=== PATIENT | male | born 1945 | race Caucasian/White ===

== ENCOUNTER 2018-01-23 06:02 | Observation (INO) | payer OTHER ==
[~2018-01-23 06:02] MED LIST: BUPI/epINEPH/KETOROLAC IU ONE; NS IV ONE; POVIDONE-IODINE 20 ML in SODIUM CL IRRIG SOLUTION 500 ML IRR ONE; ROPIVACAINE 0.2% 80 MG, EPINEPHrine 0.2 MG, KETOROLAC TROMETHAMINE 30 MG in SYRINGE 0 ML IU ONE; TRANEXAMIC ACID IV ONE
[2018-01-23] MEDS ORDERED: ACETAMINOPHEN 325 MG TAB PO ONE (06:14)
[2018-01-23] MEDS ORDERED: GABAPENTIN 300 MG CAP PO ONE (06:14)
[2018-01-23] MEDS ORDERED: LR 1,000 ML IV ONE (06:14)
[2018-01-23] MEDS ORDERED: ceFAZolin 2 GM/SWFI 2 GM/20 ML SYR IVP ONE (06:14)
[2018-01-23] MEDS ORDERED: DEXAMETHASONE 4 MG/ML VIAL IVP ONE (06:14)
[2018-01-23] MEDS ORDERED: LIDOCAINE 1% 2 ML INJ ID PRN (06:14)
[2018-01-23] MEDS ORDERED: FAMOTIDINE 20 MG TAB PO ONE (06:14)
[2018-01-23] MEDS ORDERED: ONDANSETRON 4 MG/2 ML VIAL IVP ONE (06:14)
--- NOTE | 2018-01-23 06:45 | PDANEPAE ---
ANE History of Present Illness 72 yo for tka ANE Past Medical History - Cardiovascular History Hx Hypertension: Yes Hx Arrhythmias: No Hx Chest Pain: No Hx Coronary Artery / Peripheral Vascular Disease: No Hx CHF / Valvular Disease: No Hx Palpitations: No Cardiovascular History Comment: ELEVATED CHOLESTEROL - Pulmonary History Hx COPD: No Hx Asthma/Reactive Airway Disease: No Hx Recent Upper Respiratory Infection: No Hx Oxygen in Use at Home: No Hx Sleep Apnea: Yes Sleep Apnea Screening Result - Last Documented: Positive Pulmonary History Comment: LOVE USED PREVIOUSLY NOT IN USE FOR 5 YRS. - Neurologic History Hx Cerebrovascular Accident: No Hx Seizures: Yes Hx Dementia: No Neurologic History Comment: VIRAL CEPHALITIS. RESIDUAL MEMORY PERCEPTION. SHORT TERM MEMORY ISSUES - Endocrine History Hx Diabetes: No - Renal History Hx Renal Disorders: Yes Renal History Comment: PASSED PREV STONE - Liver History Hx Hepatic Disorders: No - Neurological & Psychiatric Hx Hx Neurological and Psychiatric Disorders: No - Cancer History Hx Cancer: No - Congenital Disorder History Hx Congenital Disorders: No - GI History Hx Gastrointestinal Disorders: Yes Gastrointestinal History Comment: SKIN - Other Health History Other Health History: RT LEG DVT 2003. PE 2003 - Chronic Pain History Chronic Pain: Yes (RT KNEE) - Surgical History Prior Surgeries: FOREHEAD MOH'S PROCEDURE 01/09/2018. RT KNEE SCOPE. RT CARPAL TUNNEL RELEASE ANE Review of Systems Review of Systems: - Exercise capacity METS (RN): 4 METS ANE Patient History - Allergies Allergies/Adverse Reactions: Sulfa (Sulfonamide Antibiotics) Allergy (Intermediate, Verified 12/02/11 12:56) Hives Penicillins Allergy (Verified 01/23/18 06:39) Hives - Home Medications Home Medications: Acetaminophen [Tylenol ES 500 mg (*)] 1,000 mg PO HS 01/18/18 [Last Taken Unknown] Atorvastatin Calcium [Lipitor 10 mg (*)] 10 mg PO DAILY 01/18/18 [Last Taken Unknown] Citalopram [CeleXA] 20 mg PO DAILY 01/18/18 [Last Taken Unknown] Cyanocobalamin [Vitamin B12 (*)] 1,000 mcg PO DAILY 01/18/18 [Last Taken Unknown ] Donepezil HCl [Aricept 5 MG (*)] 10 mg PO DAILY 01/18/18 [Last Taken Unknown] Fexofenadine HCl [Olga Allergy] 60 mg PO DAILY 01/18/18 [Last Taken Unknown] Fluticasone Nasal [Flonase Nasal [place] (RX)] 1 sprays NASAL DAILY PRN 01/18/18 [ Last Taken Unknown] Herbals/Supplements -Info Only 1 ea PO DAILY 01/18/18 [Last Taken Unknown] Lisinopril [Zestril 5 mg (*)] 5 mg PO DAILY 01/18/18 [Last Taken Unknown] lamoTRIgine [LamICTAL 100 MG (*)] 200 mg PO BID 01/18/18 [Last Taken Unknown] - NPO status NPO Status: no food or drink >8 hours - Smoking Hx Smoking Status: Former smoker ANE Labs/Vital Signs - Vital Signs Height: 12 in Weight: 79.379 kg ANE Physical Exam - Airway Neck exam: FROM Mallampati Score: Class 2 Mouth exam: normal dental/mouth exam - Pulmonary Pulmonary: no respiratory distress - Cardiovascular Cardiovascular: regular rate and rhythym - ASA Status ASA Status: II ANE Anesthesia Plan Anesthesia Plan: spinal Regional Anesthesia: continuous NB
[2018-01-23] MEDS ORDERED: PROPOFOL/EMULSION 500 MG/50 ML BOTTLE IV ONE (06:51)
[2018-01-23] MEDS ORDERED: VANCOMYCIN 1 GM VIAL ONE (06:56)
[2018-01-23] MEDS ORDERED: ceFAZolin 1 GM/5 ML SYR ONE (06:57)
--- NOTE | 2018-01-23 07:06 | PDHPUP ---
History & Physical Update H&P update statement: This history and physical update is based on an assessment of the patient which was completed after admission or registration (within 24 hours), but prior to the surgery/procedure. H&P update: H&P reviewed & patient examined
[2018-01-23] MEDS ORDERED: fentaNYL 100 MCG/2 ML INJ ONE (07:31)
[2018-01-23] MEDS ORDERED: HYDROCODONE/APAP 5/325 TAB PO PRN (09:06)
[2018-01-23] MEDS ORDERED: fentaNYL 100 MCG/2 ML INJ IVP PRN (09:06)
[2018-01-23] MEDS ORDERED: NALOXONE HCL 0.4 MG/ML INJ IVP PRN (09:06)
[2018-01-23] MEDS ORDERED: ONDANSETRON 4 MG/2 ML VIAL IVP PRN ×2 (09:06→09:33)
--- NOTE | 2018-01-23 09:09 | POSTOPPROG ---
Post Op Note Date of Operation: 01/23/18 Surgeon: Goldy Terrazas Rotary Swaging Machine Operator: Adriana Anesthesiologist: Ryland Anesthesia: IV Sedation, Spinal Post-op Diagnosis: right knee arthritis Procedure: R TKA Inf/Abcess present in the surg proc area at time of surgery?: No EBL: 50-100 (ACB in PACU)
[2018-01-23] MEDS ORDERED: FLUTICASONE NASAL 120 SPRAYS/16 GM MDI EACHNARE PRN (09:31)
[2018-01-23] MEDS ORDERED: PROMETHAZINE HCL 25 MG/ML INJ IVP PRN (09:33)
[2018-01-23] MEDS ORDERED: oxyCODONE IR 5 MG TAB PO PRN (09:33)
[2018-01-23] MEDS ORDERED: diphenhydrAMINE 25 MG CAP PO PRN (09:33)
[2018-01-23] MEDS ORDERED: CYCLOBENZAPRINE 10 MG TAB PO PRN (09:33)
[2018-01-23] MEDS ORDERED: TEMAZEPAM 15 MG CAP PO PRN (09:33)
[2018-01-23] MEDS ORDERED: KETOROLAC 30 MG/1 ML SDV IVP PRN (09:33)
[2018-01-23] MEDS ORDERED: LACTULOSE 20 GM/30 ML UDCUP PO PRN (09:33)
[2018-01-23] MEDS ORDERED: PROMETHAZINE HCL 25 MG SUPPR PR PRN (09:33)
[2018-01-23] MEDS ORDERED: DIPHENOXYLATE/ATROPINE LOMOTIL 1 TAB PO PRN (09:33)
[2018-01-23] MEDS ORDERED: BISACODYL 10 MG SUPP PR PRN (09:33)
[2018-01-23] MEDS ORDERED: POLYETHYLENE GLYCOL 3350 17 GM PKT PO PRN (09:33)
[2018-01-23] MEDS ORDERED: traMADol 50 MG TAB PO PRN (09:33)
[2018-01-23] MEDS ORDERED: ONDANSETRON DISINTEGRATING 4 MG TAB PO PRN (09:33)
[2018-01-23] MEDS ORDERED: MAGNESIUM HYDROXIDE 30 ML UDCUP PO PRN (09:33)
--- NOTE | 2018-01-23 09:52 | GOP ---
[f rep st] OPERATIVE REPORT DATE OF OPERATION: 01/23/2018 SURGEON: Goldy Terrazas MD DOCK OR PIER LABORER: Obie Rajput and Matt Rosado. ANESTHESIA: A combination of Marcaine and spinal, IV sedation, and adductor canal block. PREOPERATIVE DIAGNOSIS: Right knee severe degenerative arthritis with varus deformity. POSTOPERATIVE DIAGNOSIS: Right knee severe degenerative arthritis with varus deformity. PROCEDURE PERFORMED: Right total knee arthroplasty, cemented, Reed and Nephew Journey II, posterior stabilized. FINDINGS: DESCRIPTION OF PROCEDURE: The patient was given 2 g of IV Ancef preoperatively within 60 minutes of surgery. He also received IV tranexamic acid at a dose of 10 mg/kg. He was placed on the operating room table and given spinal anesthesia with Marcaine by Dr. Astorga. He was then placed supine and given IV sedation. A Willard catheter was not used. He wore a RIP stocking and SCD on the nonoperativ e leg. A small bolster was placed under the right hip to prevent excessive external rotation of the leg. His right lower extremity was prepped with ChloraPrep from the upper thigh tourniquet to the ti ps of the toes. It was draped free using sterile sheets, stockinette, and Ioban plastic adhesive jennifer pe. His lower leg was wrapped with compressive Coban. The leg was exsanguinated with elevation and a 6-inch compressive wrap, and the tourniquet was inflated to 250 mmHg. The World Health Organization time-out was performed to verify the correct patient identity and the c orrect surgical side and site. The [place] time-out was also performed. The Qudiniayo leg holding device was sterilely attached to the operating room table and used throughout the procedure to help position the knee. A straight midline incision was made centered on the patell a. Subcutaneous tissues were sharply divided and hemostasis was obtained using electrocautery. A me dial subcutaneous flap was developed, and the capsule and synovium were opened in medial parapatellar fashion. Extensive degenerative changes were present in the medial compartment. He was eroded down to subchondral bone. The medial capsule and periosteum were elevated off the rim of the medial tibi al plateau all the way around to the posteromedial corner. His medial collateral ligament was releas ed enough to balance the medial side of the knee. In order to improve exposure, his patella was prep ared first. The original thickness of the patella was measured. Peripheral osteophytes were removed . I cut a flat surface on the back of the patella. He was sized for a 38 mm round resurfacing harkins lar component. I removed enough bone from the patella such that the remaining bone plus the thicknes s of the patellar component recreated the original thickness of the patella. The composite thickness was 23 mm. The intramedullary alignment guide system was used to set up the distal femoral cut. The distal femu r was cut in 5 degrees of valgus. Because of a 10 degree preoperative flexion contracture, I made a +2 mm cut on the distal femur. The sizing jig was used to determine proper femoral sizing. I shifte d the jig anteriorly 1 mm in order to accommodate a size 6 femoral component without notching the ant erior cortex. The 5 in 1 cutting block was applied, and the anterior and posterior condylar cuts and chamfer cuts were made. The final jig was used to remove the central portion of the distal femur to accommodate the posterior stabilized femoral component. I was careful to determine proper rotation by referencing off [place] line and other bony landmarks. Each cut was checked for accuracy befor e and after it was made. The femur was sized for a size 6 posterior stabilized component. Next, the tibia was prepared. The proximal tibial cut was made using the extramedullary alignment gu dell system. The cut was made in a few degrees of posterior slope. I was careful to achieve proper v arus valgus alignment and proper rotation. The posterior compartment was cleared of meniscal remnant s. Osteophytes were removed from the back of the femoral condyles. I checked the flexion and the ex tension gaps, and they were equal, balanced and rectangular. The tibia was sized for a size 5 compon ent. With the trial components in place, I selected and 10 mm polyethylene posterior stabilized tibi al insert. The knee came to full extension and flexed to 130 degrees. There was no overstuffing in flexion. His collateral ligaments were stable and balanced in 90 degrees of flexion and full extensi on. The trial patellar button was applied, and patellar tracking was checked. Tracking was excellen t without any digital pressure. 40 mL of the joint anesthetic cocktail were injected into the posterior capsule, the periarticular st ructures, the quadriceps muscle and tendon areas, and the subcutaneous tissues along the skin edges. A second dose of IV tranexamic acid was given at a dose of 10 mg/kg. The surfaces were prepared for cementing. They were carefully cleaned with the pulsating lavage irri gation and thoroughly dried. The CarboJet device was used to blow dry the cancellous surfaces. A do uble batch of methylmethacrylate cement with 2 g of powdered vancomycin added was mixed. While it wa s still in a doughy state, all 3 components were cemented in place. Excess cement was removed before it hardened. The 10 mm trial tibial insert was re-tried and was the proper thickness. The actual component was in serted and locked into place. The knee was thoroughly irrigated 1 final time with a dilute Betadine solution. The tourniquet was deflated and the total tourniquet time was 49 minutes. The vastus medialis portion of the extensor mechanism was repaired with several interrupted figure-of -eight #2 FiberWire sutures. The capsule and synovium were closed first with multiple interrupted fi [id number] PDS sutures, followed by a running #2 barbed Ethicon Stratafix PDO suture. The subcu taneous tissues were closed with a running 0 barbed Ethicon Stratafix Monoderm suture. The skin was closed with a running 3-0 barbed Ethicon Stratafix Monoderm subcuticular suture. The skin was sealed with half-inch Steri-Strips. The wound was covered with a large [facility] waterproof sterile dressin g and 6-inch compressive wrap. A long-leg RIP stocking and SCD were applied, followed by the cooling device. I used a size 6 cemented Reed and Nephew Oxinium posterior stabilized femoral component, a size 5 ce mented tibial base plate, a 10 mm posterior stabilized tibial insert and a 38 mm cemented round all-p olyethylene resurfacing patellar component. The estimated blood loss following deflation of the tourniquet was about 100 mL. The sponge and needle count were correct on 2 occasions. The patient was awakened from anesthesia, transferred to his [facility] and taken to PACU in sat isfactory condition. There were no recognized intraoperative complications. In the PACU, for additi onal postoperative pain control, Dr. Astorga performed an adductor canal block with an indwelling ca theter. Obie Rajput and Matt Rosado acted as surgical assistants. Their assistance was a medical necess ity for safe completion of the procedure. Copy requested to: Dominick Koo /[id number]/MODL
[2018-01-23] MEDS ORDERED: LR 1,000 ML IV SCH (10:00)
[2018-01-23] MEDS: ACETAMINOPHEN 325 MG TAB PO SCH ×3 (12:18→23:56)
[2018-01-23] MEDS: ceFAZolin 2 GM/SWFI 2 GM/20 ML SYR IVP SCH ×2 (13:39→21:41)
[2018-01-23] MEDS ORDERED: ceFAZolin 2 GM/DEXTROSE 100 ML IV SCH (14:00)
--- NOTE | 2018-01-23 17:30 | POSTANESTH ---
Post Anesthetic Evaluation Cardiovascular Status: Normal, Stable Respiratory Status: Requires Airway Assist Level of Consciousness/Mental Status: Moderately Sleepy Pain Control: Adequate, Prn Tx Ordered Nausea/Vomiting Control: Adequate, Prn Tx Ordered Complications Possibly Related to Anesthesia: None Noted
[2018-01-23] MEDS: lamoTRIgine 100 MG TAB PO SCH (21:40)
[2018-01-23] MEDS: FAMOTIDINE 20 MG TAB PO SCH (21:41)
[2018-01-23] MEDS: SENNOSIDES/DOCUSATE SODIUM TAB PO SCH (21:41)
[2018-01-24] MEDS: ACETAMINOPHEN 325 MG TAB PO SCH ×2 (05:38→11:34)
--- NOTE | 2018-01-24 07:21 | SOAPPROG ---
SOAP Progress Note Assessment/Plan: Assessment: Afebrile. Awake and alert. Minimal pain so far. He has been up and walking in his room. Postop H&H are good. Postop films look excellent. Plan: Continue physical therapy today. Discharged later today. Continue Lovenox at home for 21 days. Standing leg alignment film before discharge. 01/24/18 07:20 Objective: Vital Signs Temp Pulse Resp BP Pulse Ox 36.4 C 66 16 123/71 H 96 01/24/18 03:40 01/24/18 03:40 01/24/18 03:40 01/24/18 03:40 01/24/18 03:40 Laboratory Results 01/24/18 04:32 01/23/18 01/24/18 01/25/18 05:59 05:59 05:59 Intake Total 3250 Output Total 700 Balance 2550 ICD10 Worksheet Patient Problems: Problems Problem Status Onset Osteoarthritis of right knee Acute
--- NOTE | 2018-01-24 07:41 | GDS ---
[f rep st] DISCHARGE SUMMARY ADMISSION DIAGNOSIS: Right knee severe degenerative arthritis. DISCHARGE DIAGNOSIS: Right knee severe degenerative arthritis. OPERATION PERFORMED: 01/23/2018: A right total knee arthroplasty. POSTOPERATIVE COMPLICATIONS: None. CONDITION ON DISCHARGE: Improved. DESCRIPTION OF HOSPITAL COURSE: The patient was admitted to the hospital on the morning of surgery. His admission CBC was normal. The same day, under a combination of Marcaine, spinal, IV sedation, a nd adductor canal block, he underwent a right total knee arthroplasty. Postoperatively, he was treat ed with multimodal DVT prophylaxis, including Lovenox. On the first postoperative day, his hemoglobi n and hematocrit were 14.4 and 42.0. He was seen by Physical Therapy and made good progress with amb ulation, stairs, and knee range of motion. By the time of discharge, he was afebrile and was indepen dent and walking with a walker. DISPOSITION: The patient discharged to his home. He will have home physical therapy. He has prescr iptions for oxycodone and tramadol for pain control. Continue Lovenox at home 40 mg subcu daily for 21 days. Continue RIP stockings for 1 week. He may progress to full weightbearing on the right as t olerated. I will see him back in the office on February 07, 2018. If there any problems, he is to call me at the office. Copy requested to: Dr. Dominick Koo /[id number]/MODL
[2018-01-24] MEDS: FAMOTIDINE 20 MG TAB PO SCH (07:51)
[2018-01-24] MEDS: SENNOSIDES/DOCUSATE SODIUM TAB PO SCH (07:51)
[2018-01-24] MEDS: lamoTRIgine 100 MG TAB PO SCH (07:52)
[2018-01-24] MEDS ORDERED: ENOXAPARIN 40 MG/0.4 ML SYR SC SCH (09:00)
[2018-01-24] MEDS ORDERED: ATORVASTATIN CALCIUM 10 MG TAB PO SCH (09:00)
[2018-01-24] MEDS ORDERED: CYANO/VITAMIN B12 1000 MCG TAB PO SCH (09:00)
[2018-01-24] MEDS ORDERED: NON-FORMULARY NEW DRUG (Fexofenadine Hcl [Allegra Allergy] 60 MG) PO SCH (09:00)
[2018-01-24] MEDS ORDERED: CETIRIZINE 10 MG TAB PO SCH (09:00)
[2018-01-24] MEDS ORDERED: FERROUS SULFATE 140 MG TAB.ER PO SCH (09:00)
[2018-01-24] MEDS ORDERED: DONEPEZIL HCL 5 MG TAB PO SCH (09:00)
[2018-01-24] MEDS ORDERED: LISINOPRIL 5 MG TAB PO SCH (09:00)
[2018-01-24] MEDS ORDERED: CITALOPRAM 20 MG TAB PO SCH (09:00)
--- NOTE | 2018-01-24 09:52 | PDIAF ---
- Diagnosis Diagnosis: right knee OA Code Status: Full Code - Medication Management Discharge Medications: Medications to Continue on Transfer Atorvastatin Calcium [Lipitor 10 mg (*)] 10 mg PO DAILY 01/18/18 [Last Taken Unknown] Citalopram [CeleXA 20 MG] 20 mg PO DAILY 01/18/18 [Last Taken Unknown] Cyanocobalamin [Vitamin B12 (*)] 1,000 mcg PO DAILY 01/18/18 [Last Taken Unknown ] Donepezil HCl [Aricept 5 MG (*)] 10 mg PO DAILY 01/18/18 [Last Taken Unknown] Fexofenadine HCl [Olga Allergy] 60 mg PO DAILY 01/18/18 [Last Taken Unknown] Fluticasone Nasal [Flonase Nasal [place]] 1 sprays NASAL DAILY PRN 01/18/18 [Last Taken Unknown] Herbals/Supplements -Info Only 1 ea PO DAILY 01/18/18 [Last Taken Unknown] Lisinopril [Zestril 5 mg (*)] 5 mg PO DAILY 01/18/18 [Last Taken Unknown] lamoTRIgine [LamICTAL 100 MG (*)] 200 mg PO BID 01/18/18 [Last Taken Unknown] Acetaminophen [Tylenol 325mg (*)] 650 mg PO Q6HRS tab 01/24/18 [Last Taken Unknown] Enoxaparin [Lovenox 40 MG (*)] 40 mg SC DAILY syr 01/24/18 [Last Taken Unknown] Ferrous Sulfate [Slow Fe 140 MG (*)] 140 mg PO DAILY tab.er 01/24/18 [Last Taken Unknown] Ondansetron Odt [Zofran Odt 4 mg (*)] 4 mg PO Q4HRS PRN tab 01/24/18 [Last Taken Unknown] Sennosides/Docusate Sodium [Senokot-S] 1 - 2 tab PO BID tab 01/24/18 [Last Taken Unknown] celeCOXIB [Celebrex (*)] 200 mg PO DAILY cap 01/24/18 [Last Taken Unknown] oxyCODONE IR [Oxycodone Ir (*)] 5 - 10 mg PO Q3HRS PRN tab 01/24/18 [Last Taken Unknown] traMADol [Ultram 50 mg (*)] 50 mg PO Q6HRS PRN tab 01/24/18 [Last Taken Unknown ] Discharge Medications: Refer to the Discharge Home Medication list for PRN reason. - Orders Services needed: Home Care, Physical Therapy Home Care Face to Face: I certify that this patient was under my care and that I had the required [id number] encounter meeting the encounter requirements on the discharge day. My findings support the fact that the patient is homebound as defined in Home Care Face to Face Continued: CMS Chapter 7 Medicare Benefits Manual 30.1.1 , The condition of the patient is such that there exists a normal inability to leave home and consequently, leaving home would require a considerable and taxing effort. Diet Recommendation: no restrictions on diet Diet Texture: Regular Texture Diet Willard: Not applicable Wil Stockings Discontinue Date: 1 week Wound Care Instructions: keep clean and dry. You may shower. Equipment: Zero knee while in bed as tolerated. - Follow Up Care Current Providers and Referrals: Dominick Koo [Primary Care Provider] - Goldy Terrazas MD [Medical Doctor] - follow up as scheduled (10-14 days)
--- NOTE | 2018-01-24 11:19 | SOAPPROG ---
SOAP Progress Note Assessment/Plan: Assessment: 72 yo male s/p R TKA with Dr Terrazas on POD #1. Pt received AC block with cath placement after surgery. He is ready for discharge. Cath will be redosed with 20 mL 0.25% ropivacaine, then cath removed. Pt has VS monitoring during redose and for 30 minutes after redose. Redose: Syringe connected to catheter. Negative heme on aspiration, slow incremental injection of 1 mL with negative aspiration between each mL. Negative heme, perioral numbness, tinnitus, metallic taste during redose. VS stable throughout. Catheter removed with tip intact. VS monitoring will continue q5 min for the next 30 minutes to ensure pt tolerates redose well. Plan: 01/24/18 11:15 Objective: Vital Signs Temp Pulse Resp BP Pulse Ox 37.1 C 58 L 16 107/65 96 01/24/18 07:35 01/24/18 11:10 01/24/18 11:10 01/24/18 11:10 01/24/18 11:10 Laboratory Results 01/24/18 04:32 01/23/18 01/24/18 01/25/18 05:59 05:59 05:59 Intake Total 3250 200 Output Total 700 Balance 2550 200 Physical Exam - Physical Exam Extremities: other (R thigh at cath insertion site: no erythema/exudate/point tenderness) ICD10 Worksheet Patient Problems: Problems Problem Status Onset Osteoarthritis of right knee Acute
[2018-01-24 11:37] VITALS: BP 108/72
--- NOTE | 2018-01-24 12:11 | ASMTCMCOM ---
CM Note CM Note Notes: PT rec C, provides order and pt agreeable. Pt medically stable for d/c with [facility]. Pt address is [address] [place] [address] Dr Rosales. Orders sent in [employer]. Date Signed: 01/24/2018 12:10 PM Electronically Signed By:ALLY Ochoa
--- NOTE | 2018-01-24 12:11 | ASDISCHSUM ---
Discharge Information Plan Status:Home with Home Health Medically Cleared to Leave: Discharge Date:01/24/2018 11:50 AM CM D/C Disposition:Home Health Service ADT D/C Disposition:Home Health Service Projected Discharge Date:01/24/2018 11:00 AM Transportation at D/C:Family Discharge Delay Reason: Follow-Up Date:01/24/2018 11:00 AM Discharge Slot: Final Diagnosis: Placement Information Referral Type:*Home Health Care Services Referral ID:[id number] Provider Name:[facility] Address 1:[address] [place] [address] Address 2: City:[place] Selection Factors: State:[place] Patient Contact Information Contact Name:MACY Relationship: Address:[address] Work Phone: City:[facility] Phone: State/Zip Code:[place] [address] Email: Financial Information Financial Class:Medicare Primary Plan Desc:MEDICARE OUTPATIENT Primary Plan Number:[id number] Secondary Plan Desc:[facility] SOFI [facility] Secondary Plan Number:[id number] Assessment Information [facility] CM Progress Note CM Note CM Note Notes: PT rec [facility], provides order and pt agreeable. Pt medically stable for d/c with [facility]. Pt address is [address] [place] [address] Dr Rosales. Orders sent in [employer]. Date Signed: 01/24/2018 12:10 PM Electronically Signed By:ALLY Ochoa Intervention Information Intervention Type:DEEJAY-Signed Date of Service:01/23/2018 02:10 PM Patient Type:Observation Staff Member:Tamiko Whitman Hours: Discipline: Severity: Comment:
== END 2018-01-24 11:50 | disposition home health service (06) ==
LOC: F3N 06:02
PROVIDERS: ADMIT Orthopaedic Surgery; ATTEND Orthopaedic Surgery
PROC: 0SRC0J9 Replacement of Right Knee Joint with Synthetic Substitute, Cemented, Open Approach (ICD-10-PCS; principal; 2018-01-23 07:15)
DX: M17.11 Unilateral primary osteoarthritis, right knee (principal); E78.00 Pure hypercholesterolemia, unspecified; I10 Essential (primary) hypertension; Z86.718 Personal history of other venous thrombosis and embolism
CPT/HCPCS: 27447; 73560; 77073; 88311; 97116; 97161; 97165; C1713; C1776; G8978; G8979; G8980; G8987; G8988; G8989; J0171; J0690; J1100; J1650; J1885; J2405; J2704; J3010; J3370; J2795

== ENCOUNTER → 2018-10-20 | Outpatient (CLI) | payer OTHER | LOC: FCPNEURO 22:44 | PROVIDERS: ATTEND Psychiatry & Neurology Sleep Medicine | DX: G47.33 Obstructive sleep apnea (adult) (pediatric) (principal); G47.61 Periodic limb movement disorder ==

== ENCOUNTER → 2018-11-14 | Outpatient (CLI) | payer OTHER | LOC: BHLMT 10:00 | PROVIDERS: ATTEND Internal Medicine Cardiovascular Disease | DX: R94.31 Abnormal electrocardiogram [ECG] [EKG] (principal); I44.1 Atrioventricular block, second degree; G47.33 Obstructive sleep apnea (adult) (pediatric); R01.1 Cardiac murmur, unspecified | CPT/HCPCS: 93005-PO ==

== ENCOUNTER → 2018-11-26 | Outpatient (CLI) | payer OTHER | LOC: BHLMT 15:00 | PROVIDERS: ATTEND Internal Medicine Cardiovascular Disease | DX: I44.1 Atrioventricular block, second degree (principal) | CPT/HCPCS: 93017-PO ==

== ENCOUNTER → 2018-11-28 | Outpatient (CLI) | payer OTHER | LOC: BHLMT 08:30 | PROVIDERS: ATTEND Internal Medicine Cardiovascular Disease | DX: R94.31 Abnormal electrocardiogram [ECG] [EKG] (principal) | CPT/HCPCS: 93306-PO ==